=== PATIENT | female | born 1995 ===

== ENCOUNTER 2023-10-13 14:24 | Outpatient (REF) | payer MEDICAID, SELFPAY ==
[2023-10-13 16:53] LABS: TSH reflex Free T4 1.14 uIU/mL (0.32-4.0)
[2023-10-14 08:48] LABS: Prolactin 9.1 ng/mL
== END 2023-10-13 14:25 | disposition home or self-care (01) ==
LOC: HO.HHCL 14:24
PROVIDERS: Visit Provider Advanced Practice Midwife
DX: N92.6 Irregular menstruation, unspecified (principal)
CPT/HCPCS: 36415; 84146; 84443

== ENCOUNTER 2024-02-09 16:42 | Outpatient (REF) | payer MEDICAID, SELFPAY | END 2024-02-09 16:43 | disposition home or self-care (01) | LOC: HO.HHCLNP 16:42 | PROVIDERS: Visit Provider Advanced Practice Midwife | DX: Z12.4 Encounter for screening for malignant neoplasm of cervix (principal) | CPT/HCPCS: 36415; 88175 ==